=== PATIENT | female | born 1985 | race Caucasian/White ===

== ENCOUNTER 2020-01-16 05:30 | Inpatient (IN) ==
[2020-01-16] MEDS ORDERED: Metoclopramide 10 MG/2 ML VIAL IVP PRN ×2 (06:01→13:05)
[2020-01-16] MEDS ORDERED: Famotidine 20 MG/2 ML VIAL IVP PRN (06:01)
[2020-01-16] MEDS ORDERED: Naloxone 0.4 MG/ML INJ IVP PRN (06:01)
[2020-01-16] MEDS ORDERED: Ringers Solution, Lactated 1,000 ML IVC SCH ×2 (06:15→13:05)
[2020-01-16 06:20] LABS: Basophils % 0.3 %; Eosinophils % 0.5 %; Hematocrit 36.8 % (35.3-44.9); Hemoglobin 12.9 g/dL (11.5-15.4); Immature Granulocytes % 0.7 % (0-4); Lymphocytes # 1.9 K/mcL (0.6-4.6); Lymphocytes % 25.5 %; Mean Corpuscular HGB Conc 35.1 g/dL (31.6-35.5); Mean Corpuscular Hemoglobin 31.9 pg (28.0-33.3); Mean Corpuscular Volume 91.1 fL (83.0-100.0); Mean Platelet Volume 9.5 fL (9.4-12.4); Monocytes # 0.5 K/mcL (0.0-1.3); Monocytes % 7.4 %; Neutrophils # 4.8 K/mcL (1.6-8.9); Platelet Count 270 K/mcL (140-400); Red Blood Count 4.04 M/mcL (3.82-4.97); Red Cell Distribution Width 13.6 % (11.5-14.5); Segmented Neutrophils % 65.6 %; White Blood Count 7.3 K/mcL (4.3-11.1)
[2020-01-16] MEDS ORDERED: Ondansetron 4 MG/2 ML VIAL IVP PRN ×2 (07:27→13:05)
[2020-01-16] MEDS ORDERED: *HR* HYDROmorphone (PF) 1 MG/ML SYRINGE IVP PRN (07:27)
[2020-01-16] MEDS ORDERED: *HR* Morphine Sulfate/PF 10 MG/10 ML AMPUL ONE (07:36)
[2020-01-16] MEDS ORDERED: *HR* Oxytocin 10 UNIT/ML VIAL IM ONE (07:38)
[2020-01-16] MEDS ORDERED: Ondansetron 4 MG/2 ML VIAL ONE (07:38)
[2020-01-16] MEDS ORDERED: CeFAZolin 2,000 MG/50 ML BAG IVPB ONE (08:06)
[2020-01-16 08:29] LABS: Amphetamine Screen,Urine Negative ng/mL (Cutoff=1000); Barbiturate Screen,Urine Negative ng/mL (Cutoff=200); Benzodiazepines Screen,Urine Negative ng/mL (Cutoff=200); Cannabinoid Screen,Urine Negative ng/mL (Cutoff = 50); Cocaine Screen,Urine Negative ng/mL (Cutoff= 300); Opiate Screen,Urine Negative ng/mL (Cutoff=300); Phencyclidine Screen,Urine Negative ng/mL (Cutoff=25)
[2020-01-16] MEDS ORDERED: EPHEDrine 50 MG/ML VIAL ONE (09:04)
[2020-01-16] MEDS ORDERED: *HR* Phenylephrine 10 MG/ML VIAL ONE (09:07)
[2020-01-16] MEDS ORDERED: Acetaminophen IV 1,000 MG/100 ML INFUS..BTL ONE (09:12)
[2020-01-16] MEDS ORDERED: Ketorolac 30 MG/ML VIAL ONE (09:43)
[2020-01-16] MEDS ORDERED: Simethicone 80 MG TAB.CHEW PO PRN (13:05)
[2020-01-16] MEDS ORDERED: Oxytocin 20 units/ LR 1000 mL 20 UNIT/1,000 ML BAG IVC SCH ×2 (13:05)
[2020-01-16] MEDS ORDERED: Sennosides 8.6 MG TABLET PO PRN (13:05)
[2020-01-16] MEDS ORDERED: *HR* OxyCODONE Immed Rel 5 MG TABLET PO PRN (13:05)
[2020-01-16] MEDS ORDERED: Rho Immune Globulin 1,500 UNIT SYRINGE IM ONE (13:05)
[2020-01-16] MEDS: Ibuprofen 600 MG TABLET PO PRN (17:24)
[2020-01-16] MEDS: *HR* OxyCODONE/APAP 5/325 TABLET PO PRN (20:34)
[2020-01-16] MEDS ORDERED: Lanolin 7 G OINT...G. TP PRN (20:48)
[2020-01-17] MEDS: Ibuprofen 600 MG TABLET PO PRN ×3 (00:30→19:16)
[2020-01-17] MEDS: *HR* OxyCODONE/APAP 5/325 TABLET PO PRN ×4 (04:11→21:06)
[2020-01-17 05:53] LABS: Basophils % 0.3 %; Eosinophils % 0.5 %; Hematocrit 29.6 % (35.3-44.9); Immature Granulocytes % 0.4 % (0-4); Lymphocytes # 1.4 K/mcL (0.6-4.6); Mean Corpuscular HGB Conc 33.1 g/dL (31.6-35.5); Mean Corpuscular Hemoglobin 31.1 pg (28.0-33.3); Mean Platelet Volume 9.2 fL (9.4-12.4); Monocytes # 0.6 K/mcL (0.0-1.3); Monocytes % 7.7 %; Neutrophils # 5.5 K/mcL (1.6-8.9); Platelet Count 221 K/mcL (140-400); Red Blood Count 3.15 M/mcL (3.82-4.97); Red Cell Distribution Width 13.8 % (11.5-14.5); Segmented Neutrophils % 73.1 %; White Blood Count 7.5 K/mcL (4.3-11.1)
[2020-01-17 05:57] LABS: Hemoglobin 9.8 g/dL (11.5-15.4)
[2020-01-17] MEDS: Prenatal Vit/FA 1 EACH TABLET PO SCH (08:06)
[2020-01-17] MEDS ORDERED: Loratadine 10 MG TABLET PO SCH (09:30)
[2020-01-18] MEDS: Acetaminophen 325 MG TABLET PO PRN ×2 (00:31→07:58)
[2020-01-18] MEDS: Ibuprofen 600 MG TABLET PO PRN ×2 (01:49→07:58)
[2020-01-18] MEDS: *HR* OxyCODONE/APAP 5/325 TABLET PO PRN (05:42)
[2020-01-18] MEDS: Prenatal Vit/FA 1 EACH TABLET PO SCH (07:58)
[2020-01-18 08:14] VITALS: BP 120/82
== END 2020-01-18 10:43 | disposition home or self-care (01) | DRG 788 ==
LOC: 1NENULAB 05:35 → 1NENUOBS 12:45 → UNDODISIN 01-17 19:10
PROVIDERS: ADMIT Student in an Organized Health Care Education/Training Program; ATTEND Student in an Organized Health Care Education/Training Program